=== PATIENT | female | born 1990 | race Caucasian/White ===

== ENCOUNTER 2021-06-18 16:30 | Inpatient (IN) | payer BC ==
[2021-06-18] MEDS ORDERED: Sodium Chloride 0.9% 10 ML Syringe FLUSH PRN (16:58)
[2021-06-18] MEDS: Lactated Ringers 1,000 ML IV ONE ×2 (17:07→17:59)
[2021-06-18] MEDS ORDERED: Ondansetron 4 MG/2 ML SDV IVPUSH PRN (17:51)
[2021-06-18] MEDS ORDERED: Aluminum Hydroxide/Magnesium Hydroxide/Simethicone Susp 30 ML Cup PO PRN (17:51)
[2021-06-18] MEDS ORDERED: Calcium Carbonate 500 MG Tab.Chew PO PRN (17:51)
[2021-06-18] MEDS ORDERED: Promethazine 25 MG Tab PO PRN (17:51)
[2021-06-18] MEDS ORDERED: Nalbuphine 10 MG/1 ML Vial IVPUSH PRN (17:51)
--- NOTE | 2021-06-18 17:54 | PCM.LDHP ---
L&D History of Present Illness - General Date of Service: 06/18/21 Admit Problem/Dx: Patient Status Order with Admit Dx/Problem 06/18/21 16:56 Patient Status [ADT] Routine 06/18/21 17:51 Patient Status [ADT] Routine Admission Diagnosis/Problem Admission Diagnosis/Problem Source of Information: Patient History Limitations: Reports: No Limitations - History of Present Illness Introduction:: Patient is a 30 y/o at 38 5/7 wks who presents to L&D from clinic for concerns of nausea, diarrhea, malaise. - Related Data Allergies/Adverse Reactions: Allergies Allergy/AdvReac Type Severity Reaction Status Date / Time No Known Allergies Allergy Verified 06/18/21 16:56 Past Medical History [employer]ATE History: Reports: , Spontaneous : 2 Para: 0 - Past Surgical History HEENT Surgical History: Reports: Oral Surgery Female Surgical History: Reports: D&C Social & Family History - Tobacco Use Tobacco Use Status *Q: Never Tobacco User - Alcohol Use Alcohol Use History: No - Recreational Drug Use Recreational Drug Use: No H&P Review of Systems - Review of Systems: Review Of Systems: See Below General: Reports: Malaise Pulmonary: Reports: No Symptoms Cardiovascular: Reports: No Symptoms Gastrointestinal: Reports: Abdominal Pain, Diarrhea, Nausea Genitourinary: Reports: Frequency Musculoskeletal: Reports: Back Pain Psychiatric: Reports: No Symptoms Neurological: Reports: No Symptoms L&D Exam - Exam Exam: See Below - Vital Signs Weight: 83.007 kg - OB Specific Contraction Intensity: Irritability Movement: Active Heart Tones: Present Heart Rate (FHR) Variability: Moderate (6-25 bpm) (some periods of minimal) Presentation: Vertex - Handy Score Handy Score Cervix Position: Posterior Handy Score Consistency: Soft Handy Score Effacement: >80% Handy Score Dilation: 1-2 cm Handy Score 's Station: -1 ,0 Handy Score Total: 8 - Exam General: Alert, Oriented, Cooperative Lungs: Clear to Auscultation, Normal Respiratory Effort Cardiovascular: Regular Rate, Regular Rhythm GI/Abdominal Exam: Soft, Non-Tender Genitourinary: Normal external exam Extremities: Normal Inspection Skin: Warm, Dry, Intact - Patient Data Lab Results Last 24 hrs: Laboratory Results - last 24 hr 06/18/21 Range/Units 17:07 WBC 13.95 H (3.98-10.04) K/mm3 RBC 4.67 (3.98-5.22) M/mm3 Hgb 13.5 (11.2-15.7) gm/dl Hct 40.1 (34.1-44.9) % MCV 85.9 (79.4-94.8) fl MCH 28.9 (25.6-32.2) pg MCHC 33.7 (32.2-35.5) g/dl RDW Std Deviation 42.0 (36.4-46.3) fL Plt Count 265 (182-369) K/mm3 MPV 9.6 (9.4-12.3) fl Result Diagrams: 06/18/21 17:07 06/18/21 17:07 - Problem List (1) 38 weeks gestation of SNOMED Code(s): 26105607 ICD Code: Z3A.38 - 38 WEEKS GESTATION OF Status: Acute Current Visit: Yes (2) Diarrhea SNOMED Code(s): 37726817 ICD Code: R19.7 - DIARRHEA, UNSPECIFIED Status: Acute Current Visit: Yes Qualifiers: Diarrhea type: unspecified type Qualified Code(s): R19.7 - Diarrhea, unspecified (3) Malaise SNOMED Code(s): 425298487 ICD Code: R53.81 - OTHER MALAISE Status: Acute Current Visit: Yes (4) Oligohydramnios SNOMED Code(s): 62351402 ICD Code: O41.00X0 - OLIGOHYDRAMNIOS, UNSP TRIMESTER, NOT APPLICABLE OR UNSP Status: Acute Current Visit: Yes Qualifiers: Fetus number: single or unspecified fetus Trimester: third trimester Qualified Code(s): O41.03X0 - Oligohydramnios, third trimester, not applicable or unspecified Problem List Initiated/Reviewed/Updated: Yes Orders Last 24hrs: Active Orders 24 hr Category Date Time Status Patient Status [ADT] Routine ADT 06/18/21 16:56 Active Patient Status [ADT] Routine ADT 06/18/21 17:51 Ordered Communication Order [RC] ASDIRECTED Care 06/18/21 17:51 Ordered Communication Order [RC] ASDIRECTED Care 06/18/21 17:51 Ordered Communication Order [RC] ASDIRECTED Care 06/18/21 17:51 Ordered Heart Tones [RC] ASDIRECTED Care 06/18/21 17:52 Ordered Non Stress Test [RC] PER UNIT ROUTINE Care 06/18/21 16:56 Active Notify Provider [RC] ASDIRECTED Care 06/18/21 17:51 Ordered Notify Provider [RC] PRN Care 06/18/21 17:51 Ordered Peripheral IV Care [RC] . DIRECTED Care 06/18/21 16:59 Active Up ad Estrellita [RC] ASDIRECTED Care 06/18/21 17:52 Ordered Vaginal Exam [RC] ASDIRECTED Care 06/18/21 17:51 Ordered Vital Signs [RC] ASDIRECTED Care 06/18/21 17:51 Ordered Vital Signs [RC] PER UNIT ROUTINE Care 06/18/21 16:56 Active Regular Diet [DIET] Diet 06/18/21 Dinner Ordered BPP wo NST [US] Routine Exams 06/18/21 17:25 Ordered COMPREHENSIVE METABOLIC PN,CMP [CHEM] Routine Lab 06/18/21 17:07 Ordered CORONAVIRUS COVID-19 GUERITA [MOLEC] Stat Lab 06/18/21 17:54 Ordered RAPID PLASMA REAGIN,RPR [CHEM] Routine Lab 06/18/21 17:51 Ordered TYPE AND SCREEN [BBK] Routine Lab 06/18/21 17:07 Ordered UA W/O MICROSCOPIC [URIN] Routine Lab 06/18/21 17:07 Ordered Acetaminophen [TylenoL] Med 06/18/21 17:51 Ordered 650 mg PO Q4H PRN Alum Hydrox/Mag Hydrox/Simeth [Mag-Al Plus] Med 06/18/21 17:51 Ordered 30 ml PO Q8H PRN Calcium Carbonate [Tums] Med 06/18/21 17:51 Ordered 1,000 mg PO Q2H PRN Nalbuphine [Nubain] Med 06/18/21 17:51 Ordered 10 mg IVPUSH Q2H PRN Ondansetron [Zofran] Med 06/18/21 17:51 Ordered 4 mg IVPUSH Q4H PRN Oxytocin/Lactated Ringers [Pitocin in LR 10 Units/1,000 Med 06/18/21 18:00 Ordered ML] 10 unit in 1,000 ml IV .CONTINUOUS Oxytocin/Lactated Ringers [Pitocin in LR 10 Units/1,000 Med 06/18/21 18:00 Ordered ML] 10 unit in 1,000 ml IV TITRATE Promethazine [Phenergan] Med 06/18/21 17:51 Ordered 25 mg PO Q4H PRN Sodium Chloride 0.9% [Saline Flush] Med 06/18/21 16:58 Active 10 ml FLUSH ASDIRECTED PRN Electronic Heart Tones Ext w TOCO [WOMSER] Ot 06/18/21 17:51 Ordered Routine Electronic Heart Tones Internal [WOMSER] Per Unit Ot 06/18/21 17:51 Ordered Routine Peripheral IV Insertion Adult [OM.PC] Routine Oth 06/18/21 16:58 Ordered Resuscitation Status Routine Resus Stat 06/18/21 16:56 Ordered Medication Orders Sodium Chloride (Sodium Chloride 0.9% 10 Ml Syringe) 10 ml FLUSH ASDIRECTED PRN PRN Reason: Keep Vein Open Assessment/Plan Comment:: Patient presented from clinic for IVF, labs, and NST. On initial tracing few variables noted and some periods of minimal variability. Bedside US done with concerns for oligohydramnios. US ordered for FILIPPO, Growth, BPP. Prior to tech a rriving 1L of fluid about complete with resolution of variables, improvement in variability, and also presence of accelerations. US had findings of oligohydramnios. BPP off for fluid and breathing. However, as NST then reactive right prior total score of 6/10. Reviewed with patient given oligohy dramnios recommend proceeding with delivery. She agrees. GBS negative, no need for antibiotics. Cervical ripening balloon placed. Will add in Pitocin as able. Pain management per patient preference.
[2021-06-18] MEDS ORDERED: Lactated Ringers 1,000 ML IV ONE (17:56)
[2021-06-18] MEDS ORDERED: Lactated Ringers 1,000 ML ONE (17:59)
[2021-06-18] MEDS ORDERED: Oxytocin/Lactated Ringers 10 UNIT/1,000 ML BAG IV SCH ×2 (18:00)
--- NOTE | 2021-06-18 18:37 | US ---
Biophysical profile: Multiple real-time images were obtained transabdominally. Comparison: No prior obstetrical imaging is available. Dates: Working KAILASH: 06/27/21, gestational age 38 weeks 5 days Current ultrasound: KAILASH 07/01/21, gestational age 38 weeks 1 day presentation: Cephalic Placenta: Anterior Amniotic fluid: 3.31 cm, single pocket of 1.7 cm Measurements: BPD: 9.47 cm - 38 weeks 5 days Head circumference: 33.51 cm - 38 weeks 3 days Abdominal circumference: 33.01 cm - 37 weeks 0 days Femur length: 7.40 cm - 38 weeks 0 days Estimated weight: 3229 g (7 lbs. 2 oz.), estimated weight is at the 36th percentile for age Heart rate: 155 bpm Cervical length: 4.4 cm Biophysical profile: movement 2, breathing movement 0, tone 2, amniotic fluid volume 0 Impression: 1. Single intrauterine fetus currently cephalic in presentation. Dates as noted above. 2. Low amniotic fluid volume. 3. 4 out of 8 on biophysical profile. Diagnostic code #5
[2021-06-18] MEDS ORDERED: fentaNYL 100 MCG/2 ML SDV EPIDUR PRN (20:29)
[2021-06-18] MEDS ORDERED: ePHEDrine 50 MG/ML SDV IVPUSH PRN (20:29)
[2021-06-18] MEDS ORDERED: diphenhydrAMINE 50 MG/ML SDV IVPUSH PRN (20:29)
--- NOTE | 2021-06-18 21:03 | PCM.PREANE ---
Preanesthetic Assessment - Procedure Proposed Procedure: epidural - Anesthesia/Transfusion/Family Hx Anesthesia History: Prior Anesthesia Without Reaction Family History of Anesthesia Reaction: No Transfusion History: No Prior Transfusion(s) - Review of Systems General: Fatigue, Malaise Pulmonary: No Symptoms Cardiovascular: No Symptoms Gastrointestinal: Abdominal Pain (labor) Neurological: No Symptoms Other: Reports: None - Physical Assessment Vital Signs: Last Vital Signs Temp 36.6 C 06/18/21 16:45 Pulse 116 H 06/18/21 18:32 Resp BP 111/83 06/18/21 16:45 Pulse Ox Height: 1.73 m Weight: 83.007 kg ASA Class: 2 Mental Status: Alert & Oriented x3 Airway Class: Mallampati = 1 Dentition: Reports: Normal Dentition Thyro-Mental Finger Breadths: 3 Mouth Opening Finger Breadths: 3 ROM/Head Extension: Full Lungs: Clear to Auscultation, Normal Respiratory Effort Cardiovascular: Regular Rate, Regular Rhythm - Lab Values: Laboratory Last Values WBC 13.95 K/mm3 (3.98-10.04) H 06/18/21 17:07 RBC 4.67 M/mm3 (3.98-5.22) 06/18/21 17:07 Hgb 13.5 gm/dl (11.2-15.7) 06/18/21 17:07 Hct 40.1 % (34.1-44.9) 06/18/21 17:07 MCV 85.9 fl (79.4-94.8) 06/18/21 17:07 MCH 28.9 pg (25.6-32.2) 06/18/21 17:07 MCHC 33.7 g/dl (32.2-35.5) 06/18/21 17:07 RDW Std Deviation 42.0 fL (36.4-46.3) 06/18/21 17:07 Plt Count 265 K/mm3 (182-369) 06/18/21 17:07 MPV 9.6 fl (9.4-12.3) 06/18/21 17:07 Sodium 141 mEq/L (136-145) 06/18/21 17:07 Potassium 3.5 mEq/L (3.5-5.1) 06/18/21 17:07 Chloride 106 mEq/L (98-107) 06/18/21 17:07 Carbon Dioxide 21 mEq/L (21-32) 06/18/21 17:07 Anion Gap 17.5 (5-15) H 06/18/21 17:07 BUN 10 mg/dL (7-18) 06/18/21 17:07 Creatinine 0.8 mg/dL (0.55-1.02) 06/18/21 17:07 Est Cr Clr Drug Dosing 105.61 mL/min 06/18/21 17:07 Estimated GFR (MDRD) > 60 mL/min (>60) 06/18/21 17:07 BUN/Creatinine Ratio 12.5 (14-18) L 06/18/21 17:07 Glucose 76 mg/dL (70-99) 06/18/21 17:07 Calcium 9.2 mg/dL (8.5-10.1) 06/18/21 17:07 Total Bilirubin 0.5 mg/dL (0.2-1.0) 06/18/21 17:07 AST 14 U/L (15-37) L 06/18/21 17:07 ALT 16 U/L (14-59) 06/18/21 17:07 Alkaline Phosphatase 128 U/L (46-116) H 06/18/21 17:07 Total Protein 6.5 g/dl (6.4-8.2) 06/18/21 17:07 Albumin 3.0 g/dl (3.4-5.0) L 06/18/21 17:07 Globulin 3.5 gm/dL 06/18/21 17:07 Albumin/Globulin Ratio 0.9 (1-2) L 06/18/21 17:07 Urine Color Yellow (Yellow) 06/18/21 19:40 Urine Appearance Clear (Clear) 06/18/21 19:40 Urine pH 6.0 (5.0-8.0) 06/18/21 19:40 Ur Specific [place] 1.025 (1.005-1.030) 06/18/21 19:40 Urine Protein 1+ (Negative) H 06/18/21 19:40 Urine Glucose (UA) Negative (Negative) 06/18/21 19:40 Urine Ketones 4+ (Negative) H 06/18/21 19:40 Urine Occult Blood 1+ (Negative) H 06/18/21 19:40 Urine Nitrite Negative (Negative) 06/18/21 19:40 Urine Bilirubin Negative (Negative) 06/18/21 19:40 Urine Urobilinogen 0.2 (0.2-1.0) 06/18/21 19:40 Ur Leukocyte Esterase Negative (Negative) 06/18/21 19:40 RPR Non-reactive (NONREACTIVE) 06/18/21 16:15 SARS-CoV-2 RNA (GUERITA) Negative (NEGATIVE) 06/18/21 19:40 Blood Type A POSITIVE 06/18/21 17:07 Gel Antibody Screen Negative 06/18/21 17:07 - Allergies Allergies/Adverse Reactions: Allergies Allergy/AdvReac Type Severity Reaction Status Date / Time No Known Allergies Allergy Verified 06/18/21 16:56 - Anesthesia Plan Pre-Op Medication Ordered: None - Acknowledgements Anesthesia Type Planned: Epidural Pt an Appropriate Candidate for the Planned Anesthesia: Yes Alternatives and Risks of Anesthesia Discussed w Pt/Guardian: Yes Pt/Guardian Understands and Agrees with Anesthesia Plan: Yes PreAnesthesia Questionnaire Gastrointestinal History: Reports: GERD - CURRENT (IN HOUSE) MEDS Current Meds: Current Medications Acetaminophen (Acetaminophen 325 Mg Tab) 650 mg PO Q4H PRN PRN Reason: Fever greater than 100.4 Al Hydroxide/Mg Hydroxide (Aluminum Hydroxide/Magnesium Hydroxide/Simethicone Susp 30 Ml Cup) 30 ml PO Q8H PRN PRN Reason: Heartburn Calcium Carbonate/Glycine (Calcium Carbonate 500 Mg Tab.Chew) 1,000 mg PO Q2H PRN PRN Reason: Indigestion Diphenhydramine HCl (Diphenhydramine 50 Mg/Ml Sdv) 25 mg IVPUSH Q6H PRN PRN Reason: pruritis Ephedrine Sulfate (Ephedrine 50 Mg/Ml Sdv) 5 mg IVPUSH ASDIRECTED PRN PRN Reason: Hypotension Fentanyl (Fentanyl 100 Mcg/2 Ml Sdv) 100 mcg EPIDUR Q3H PRN PRN Reason: Pain Fentanyl/Bupivacaine HCl (Bupivacaine/Fentanyl/Ns 100 Ml Bag) 100 ml EPIDUR ASDIRECTED PRN PRN Reason: Pain Oxytocin/Lactated Ringer's (Pitocin In Lr 10 Units/1,000 Ml) 10 unit in 1,000 mls @ 12 mls/hr IV TITRATE CARIN; Protocol Oxytocin/Lactated Ringer's (Pitocin In Lr 10 Units/1,000 Ml) 10 unit in 1,000 mls @ 500 mls/hr IV .CONTINUOUS CARIN Nalbuphine HCl (Nalbuphine 10 Mg/1 Ml Vial) 10 mg IVPUSH Q2H PRN PRN Reason: Pain Ondansetron HCl (Ondansetron 4 Mg/2 Ml Sdv) 4 mg IVPUSH Q4H PRN PRN Reason: Nausea/Vomiting Promethazine HCl (Promethazine 25 Mg Tab) 25 mg PO Q4H PRN PRN Reason: Nausea/Vomiting Sodium Chloride (Sodium Chloride 0.9% 10 Ml Syringe) 10 ml FLUSH ASDIRECTED PRN PRN Reason: Keep Vein Open Discontinued Medications Lactated Ringer's (Ringers, Lactated) 1,000 mls @ 1,000 mls/hr IV .BOLUS ONE Stop: 06/18/21 17:57 Last Admin: 06/18/21 17:59 Dose: 1,000 mls/hr Documented by: Lactated Ringer's (Ringers, Lactated) 1,000 mls @ 1,000 mls/hr IV ASDIRECTED ONE Stop: 06/18/21 18:55 Lactated Ringer's (Ringers, Lactated) Confirm Administered Dose 1,000 mls @ as directed .ROUTE .STK-MED ONE Stop: 06/18/21 18:00
[2021-06-18] MEDS: Bupivacaine/fentaNYL/NS 100 ML Bag EPIDUR PRN (21:15)
[2021-06-18] MEDS: Lactated Ringers 1,000 ML IV SCH (21:30)
--- NOTE | 2021-06-18 23:49 | PCM.PNLD ---
Labor Progress Note - VS & Meds Vital Signs: Last Vital Signs Temp 36.6 C 06/18/21 16:45 Pulse 116 H 06/18/21 18:32 Resp BP 111/83 06/18/21 16:45 Pulse Ox Active Medications: Current Medications Acetaminophen (Acetaminophen 325 Mg Tab) 650 mg PO Q4H PRN PRN Reason: Fever greater than 100.4 Al Hydroxide/Mg Hydroxide (Aluminum Hydroxide/Magnesium Hydroxide/Simethicone Susp 30 Ml Cup) 30 ml PO Q8H PRN PRN Reason: Heartburn Calcium Carbonate/Glycine (Calcium Carbonate 500 Mg Tab.Chew) 1,000 mg PO Q2H PRN PRN Reason: Indigestion Diphenhydramine HCl (Diphenhydramine 50 Mg/Ml Sdv) 25 mg IVPUSH Q6H PRN PRN Reason: pruritis Ephedrine Sulfate (Ephedrine 50 Mg/Ml Sdv) 5 mg IVPUSH ASDIRECTED PRN PRN Reason: Hypotension Fentanyl (Fentanyl 100 Mcg/2 Ml Sdv) 100 mcg EPIDUR Q3H PRN PRN Reason: Pain Fentanyl/Bupivacaine HCl (Bupivacaine/Fentanyl/Ns 100 Ml Bag) 100 ml EPIDUR ASDIRECTED PRN PRN Reason: Pain Oxytocin/Lactated Ringer's (Pitocin In Lr 10 Units/1,000 Ml) 10 unit in 1,000 mls @ 12 mls/hr IV TITRATE CARIN; Protocol Oxytocin/Lactated Ringer's (Pitocin In Lr 10 Units/1,000 Ml) 10 unit in 1,000 mls @ 500 mls/hr IV .CONTINUOUS CARIN Nalbuphine HCl (Nalbuphine 10 Mg/1 Ml Vial) 10 mg IVPUSH Q2H PRN PRN Reason: Pain Ondansetron HCl (Ondansetron 4 Mg/2 Ml Sdv) 4 mg IVPUSH Q4H PRN PRN Reason: Nausea/Vomiting Promethazine HCl (Promethazine 25 Mg Tab) 25 mg PO Q4H PRN PRN Reason: Nausea/Vomiting Sodium Chloride (Sodium Chloride 0.9% 10 Ml Syringe) 10 ml FLUSH ASDIRECTED PRN PRN Reason: Keep Vein Open Discontinued Medications Lactated Ringer's (Ringers, Lactated) 1,000 mls @ 1,000 mls/hr IV .BOLUS ONE Stop: 06/18/21 17:57 Last Admin: 06/18/21 17:59 Dose: 1,000 mls/hr Documented by: Lactated Ringer's (Ringers, Lactated) 1,000 mls @ 1,000 mls/hr IV ASDIRECTED ONE Stop: 06/18/21 18:55 Lactated Ringer's (Ringers, Lactated) Confirm Administered Dose 1,000 mls @ as directed .ROUTE .STK-MED ONE Stop: 06/18/21 18:00 - Uterine Contractions Uterine Monitoring Mode: External [place] Contraction Intensity: Mild to Moderate - Monitoring Monitor Mode: External Ultrasound Heart Rate (FHR) Baseline: 145 Heart Rate (FHR) Variability: Moderate (6-25 bpm) (some periods of more minimal) Accelerations: Absent Decelerations: None Strip Review: Category I - Vaginal Exam Dilation (cm): 5 Effacement (Percent): 50 Station: 1 Sterile Vaginal Exam Performed By: Lay Rojas - Labor Progress (Free Text) Labor Progress: Doing well. After cervical ripening balloon placed became very uncomfortable. Received an epidural and now doing well. Balloon able to be removed with gentle traction. Attempt made at AROM, but no fluid returned. Uncertain if successful or findings due to oligohydramnios. Pitocin at 2. Continue per protocol
[2021-06-18] MEDS: Acetaminophen 325 MG Tab PO PRN (23:59)
[2021-06-19] MEDS: Lactated Ringers 1,000 ML IV SCH ×3 (00:02→09:00)
[2021-06-19] MEDS: Bupivacaine/fentaNYL/NS 100 ML Bag EPIDUR PRN ×2 (03:40→10:35)
--- NOTE | 2021-06-19 05:12 | PCM.PNLD ---
Labor Progress Note - VS & Meds Vital Signs: Last Vital Signs Temp 36.6 C 06/18/21 16:45 Pulse 116 H 06/18/21 18:32 Resp BP 111/83 06/18/21 16:45 Pulse Ox Active Medications: Current Medications Acetaminophen (Acetaminophen 325 Mg Tab) 650 mg PO Q4H PRN PRN Reason: Fever greater than 100.4 Last Admin: 06/18/21 23:59 Dose: 650 mg Documented by: Al Hydroxide/Mg Hydroxide (Aluminum Hydroxide/Magnesium Hydroxide/Simethicone Susp 30 Ml Cup) 30 ml PO Q8H PRN PRN Reason: Heartburn Calcium Carbonate/Glycine (Calcium Carbonate 500 Mg Tab.Chew) 1,000 mg PO Q2H PRN PRN Reason: Indigestion Diphenhydramine HCl (Diphenhydramine 50 Mg/Ml Sdv) 25 mg IVPUSH Q6H PRN PRN Reason: pruritis Ephedrine Sulfate (Ephedrine 50 Mg/Ml Sdv) 5 mg IVPUSH ASDIRECTED PRN PRN Reason: Hypotension Fentanyl (Fentanyl 100 Mcg/2 Ml Sdv) 100 mcg EPIDUR Q3H PRN PRN Reason: Pain Last Admin: 06/18/21 21:00 Dose: 100 mcg Documented by: Fentanyl/Bupivacaine HCl (Bupivacaine/Fentanyl/Ns 100 Ml Bag) 100 ml EPIDUR ASDIRECTED PRN PRN Reason: Pain Last Admin: 06/19/21 03:40 Dose: 100 ml Documented by: Oxytocin/Lactated Ringer's (Pitocin In Lr 10 Units/1,000 Ml) 10 unit in 1,000 mls @ 12 mls/hr IV TITRATE CARIN; Protocol Last Titration: 06/19/21 01:10 Dose: 0 munits/min, 0 mls/hr Documented by: Oxytocin/Lactated Ringer's (Pitocin In Lr 10 Units/1,000 Ml) 10 unit in 1,000 mls @ 500 mls/hr IV .CONTINUOUS CARIN Lactated Ringer's (Ringers, Lactated) 1,000 mls @ 100 mls/hr IV ASDIRECTED CARIN Last Admin: 06/19/21 00:02 Dose: 250 mls/hr Documented by: Nalbuphine HCl (Nalbuphine 10 Mg/1 Ml Vial) 10 mg IVPUSH Q2H PRN PRN Reason: Pain Ondansetron HCl (Ondansetron 4 Mg/2 Ml Sdv) 4 mg IVPUSH Q4H PRN PRN Reason: Nausea/Vomiting Promethazine HCl (Promethazine 25 Mg Tab) 25 mg PO Q4H PRN PRN Reason: Nausea/Vomiting Sodium Chloride (Sodium Chloride 0.9% 10 Ml Syringe) 10 ml FLUSH ASDIRECTED PRN PRN Reason: Keep Vein Open Discontinued Medications Lactated Ringer's (Ringers, Lactated) 1,000 mls @ 1,000 mls/hr IV .BOLUS ONE Stop: 06/18/21 17:57 Last Admin: 06/18/21 17:59 Dose: 1,000 mls/hr Documented by: Lactated Ringer's (Ringers, Lactated) 1,000 mls @ 1,000 mls/hr IV ASDIRECTED ONE Stop: 06/18/21 18:55 Last Admin: 06/18/21 20:30 Dose: 1,000 mls/hr Documented by: Lactated Ringer's (Ringers, Lactated) Confirm Administered Dose 1,000 mls @ as directed .ROUTE .STK-MED ONE Stop: 06/18/21 18:00 Last Admin: 06/18/21 23:52 Dose: Not Given Documented by: - Uterine Contractions Uterine Monitoring Mode: External [place] Contraction Intensity: Moderate to Strong - Monitoring Monitor Mode: External Ultrasound Heart Rate (FHR) Baseline: 145 Heart Rate (FHR) Variability: Moderate (6-25 bpm) Accelerations: Absent Decelerations: None Strip Review: Category I - Vaginal Exam Dilation (cm): 6 Effacement (Percent): 90 Station: 1 Cervical Position: Midposition Sterile Vaginal Exam Performed By: Lay Rojas - Labor Progress (Free Text) Labor Progress: About an hour after starting pitocin had some decelerations noted. Pitocin at 4 at that time. Discontinued with resolution. Has been mandi fairly regularly since then. Tracing overall reassuring. Some small periods of mi nimal variability. Good scalp stimulation noted with last check. Making consistent change. Family updated on findings.
[2021-06-19] MEDS: Acetaminophen 325 MG Tab PO PRN ×2 (06:46→12:25)
--- NOTE | 2021-06-19 08:16 | PCM.PNLD ---
Labor Progress Note - VS & Meds Vital Signs: Last Vital Signs Temp 37.7 C 06/19/21 06:46 Pulse 116 H 06/18/21 18:32 Resp BP 111/83 06/18/21 16:45 Pulse Ox Active Medications: Current Medications Acetaminophen (Acetaminophen 325 Mg Tab) 650 mg PO Q4H PRN PRN Reason: Fever greater than 100.4 Last Admin: 06/19/21 06:46 Dose: 650 mg Documented by: Al Hydroxide/Mg Hydroxide (Aluminum Hydroxide/Magnesium Hydroxide/Simethicone Susp 30 Ml Cup) 30 ml PO Q8H PRN PRN Reason: Heartburn Calcium Carbonate/Glycine (Calcium Carbonate 500 Mg Tab.Chew) 1,000 mg PO Q2H PRN PRN Reason: Indigestion Diphenhydramine HCl (Diphenhydramine 50 Mg/Ml Sdv) 25 mg IVPUSH Q6H PRN PRN Reason: pruritis Ephedrine Sulfate (Ephedrine 50 Mg/Ml Sdv) 5 mg IVPUSH ASDIRECTED PRN PRN Reason: Hypotension Fentanyl (Fentanyl 100 Mcg/2 Ml Sdv) 100 mcg EPIDUR Q3H PRN PRN Reason: Pain Last Admin: 06/18/21 21:00 Dose: 100 mcg Documented by: Fentanyl/Bupivacaine HCl (Bupivacaine/Fentanyl/Ns 100 Ml Bag) 100 ml EPIDUR ASDIRECTED PRN PRN Reason: Pain Last Admin: 06/19/21 03:40 Dose: 100 ml Documented by: Oxytocin/Lactated Ringer's (Pitocin In Lr 10 Units/1,000 Ml) 10 unit in 1,000 mls @ 12 mls/hr IV TITRATE CARIN; Protocol Last Titration: 06/19/21 07:50 Dose: 4 munits/min, 24 mls/hr Documented by: Oxytocin/Lactated Ringer's (Pitocin In Lr 10 Units/1,000 Ml) 10 unit in 1,000 mls @ 500 mls/hr IV .CONTINUOUS CARIN Lactated Ringer's (Ringers, Lactated) 1,000 mls @ 100 mls/hr IV ASDIRECTED CARIN Last Admin: 06/19/21 04:09 Dose: 100 mls/hr Documented by: Nalbuphine HCl (Nalbuphine 10 Mg/1 Ml Vial) 10 mg IVPUSH Q2H PRN PRN Reason: Pain Ondansetron HCl (Ondansetron 4 Mg/2 Ml Sdv) 4 mg IVPUSH Q4H PRN PRN Reason: Nausea/Vomiting Promethazine HCl (Promethazine 25 Mg Tab) 25 mg PO Q4H PRN PRN Reason: Nausea/Vomiting Sodium Chloride (Sodium Chloride 0.9% 10 Ml Syringe) 10 ml FLUSH ASDIRECTED PRN PRN Reason: Keep Vein Open Discontinued Medications Lactated Ringer's (Ringers, Lactated) 1,000 mls @ 1,000 mls/hr IV .BOLUS ONE Stop: 06/18/21 17:57 Last Admin: 06/18/21 17:59 Dose: 1,000 mls/hr Documented by: Lactated Ringer's (Ringers, Lactated) 1,000 mls @ 1,000 mls/hr IV ASDIRECTED ONE Stop: 06/18/21 18:55 Last Admin: 06/18/21 20:30 Dose: 1,000 mls/hr Documented by: Lactated Ringer's (Ringers, Lactated) Confirm Administered Dose 1,000 mls @ as directed .ROUTE .STK-MED ONE Stop: 06/18/21 18:00 Last Admin: 06/18/21 23:52 Dose: Not Given Documented by: - Uterine Contractions Uterine Monitoring Mode: External [place] Contraction Intensity: Moderate to Strong - Monitoring Monitor Mode: External Ultrasound Heart Rate (FHR) Baseline: 155 Heart Rate (FHR) Variability: Moderate (6-25 bpm) Accelerations: Present, 10x10 (=/<32 wks) Decelerations: Variable Strip Review: Category II - Vaginal Exam Dilation (cm): 7 Effacement (Percent): 90 Station: 2 Cervical Position: Anterior Sterile Vaginal Exam Performed By: Lay Rojas - Labor Progress (Free Text) Labor Progress: Patient with no change at 0700 and so pitocin restarted. Currently at 4. Has been on for about 45 minutes. Patient now 7. Some variable decelerations. Turned to hands/knees with resolution. Patient and family updated on findings. Will continue to work cautiously towards vaginal delivery
--- NOTE | 2021-06-19 08:46 | PCM.SN.2 ---
- Free Text/Narrative Note: 0844 Patient with some temperatures of 100.0 and upper 99's overnight. Has never had a temperature of 100.3, but also has been receiving Tylenol. When presented had GI illness symptoms from previous days and so likely these findings from that, but now with a more sustained tachycardia in the 170's. Will start Amp and Gent to cover for a chorio like picture given somewhat challenging to completely rule out as now ruptured for about 9 hours. Lay Rojas MD
[2021-06-19] MEDS: Ampicillin 2 GM in Sodium Chloride 0.9% 100 ML IV SCH ×2 (08:53→14:02)
[2021-06-19] MEDS ORDERED: Bupivacaine 0.25% 10 ML SDV ONE (09:00)
[2021-06-19] MEDS ORDERED: Methylergonovine 0.2 MG/1 ML Amp ONE (14:20)
[2021-06-19] MEDS ORDERED: Methylergonovine 0.2 MG/1 ML Amp IM STA (14:29)
--- NOTE | 2021-06-19 14:31 | PCM.DEL ---
L & D Note - General Info Date of Service: 06/19/21 - Delivery Note Labor: Augmented by ARM, Induced by Oxytocin Cervical Ripening Method: Balloon Device Delivery Outcome: Livebirth Delivery Method: Spontaneous Vaginal Delivery-Single Delivery Mode: Vacuum Extraction Presentation: Right Occiput Anterior (RICARDO) Nuchal Cord: Present, Reduced Anesthesia Type: Epidural Amniotic Fluid Description: Clear Episiotomy Type: None Laceration: 2nd Degree, Perineal Suture type: Vicryl Suture size: 2-0 Placenta: Intact, Spontaneous Cord: 3 Vessels Estimated Blood Loss: 350 Resuscitation Needed: Yes [place]: Bulb Syringe, Stimulated, Warmed, [place] Used, Warmer Used Delivery Comments (Free Text/Narrative):: The patient was pushing in the dorsal lithotomy position. Sterile vaginal exam complete/complete/+3 station. head in RICARDO presentation. Maternal pushing effort was good and the pelvis was felt to be adequate for an instrument assisted delivery. Given maternal exhaustion (had been pushing 3.5 hours), the decision was made to proceed with vacuum assisted vaginal delivery. The mushroom cup was placed without difficulty with care to avoid the vaginal side hobson at 1408. Subsequent vacuum assisted vaginal delivery with pushing over 3 contractions. Total pop offs : 0. Suction was removed following delivery of the head. Nuchal cord present and reduced. The remainder of the infant delivered without difficulty at 1412. placed on maternal abdomen. Cord eventually clamped and cut. Cord blood obtained. Placenta allowed time to separate and expelled intact. Poor uterine tone noted and so given 0.2 mg of IM methergine. Inspection of perineum showed a 2nd degree laceration which was repaired with a 2-0 Vicryl in the typical fashion. - General Info Date of Service: 06/19/21 - Patient Data Vitals - Most Recent: Last Vital Signs Temp 38.2 C H 06/19/21 12:25 Pulse 116 H 06/18/21 18:32 Resp BP 111/83 06/18/21 16:45 Pulse Ox Weight - Most Recent: 83.007 kg I&O - Last 24 Hours: Intake & Output 06/18/21 06/19/21 06/19/21 22:59 06:59 14:59 Intake Total 1000 4000 1780 Output Total 1025 Balance 1000 4000 755 - Exam Urinary Catheter Total Time: 0Days 0Hours - Problem List & Annotations (1) 38 weeks gestation of SNOMED Code(s): 74845451 Code(s): Z3A.38 - 38 WEEKS GESTATION OF Status: Acute Current Visit: Yes (2) Diarrhea SNOMED Code(s): 18808500 Code(s): R19.7 - DIARRHEA, UNSPECIFIED Status: Acute Current Visit: Yes Qualifiers: Diarrhea type: unspecified type Qualified Code(s): R19.7 - Diarrhea, unspecified (3) Malaise SNOMED Code(s): 389334201 Code(s): R53.81 - OTHER MALAISE Status: Acute Current Visit: Yes (4) Oligohydramnios SNOMED Code(s): 12877157 Code(s): O41.00X0 - OLIGOHYDRAMNIOS, UNSP TRIMESTER, NOT APPLICABLE OR UNSP Status: Acute Current Visit: Yes Qualifiers: Fetus number: single or unspecified fetus Trimester: third trimester Qualified Code(s): O41.03X0 - Oligohydramnios, third trimester, not applicable or unspecified (5) Fever SNOMED Code(s): 319722652 Code(s): R50.9 - FEVER, UNSPECIFIED Status: Acute Current Visit: Yes (6) Chorioamnionitis SNOMED Code(s): 26510271 Code(s): O41.1290 - CHORIOAMNIONITIS, UNSP TRIMESTER, NOT APPLICABLE OR UNSP Status: Acute Current Visit: Yes Qualifiers: Fetus number: single or unspecified fetus Trimester: third trimester Qualified Code(s): O41.1230 - Chorioamnionitis, third trimester, not applicable or unspecified (7) Vacuum-assisted vaginal delivery SNOMED Code(s): 64174143568827489 Code(s): Z37.9 - OUTCOME OF DELIVERY, UNSPECIFIED Status: Acute Current Visit: Yes - Problem List Review Problem List Initiated/Reviewed/Updated: Yes - My Orders Last 24 Hours: My Active Orders 06/18/21 16:56 Patient Status [ADT] Routine Resuscitation Status Routine 06/18/21 16:58 Sodium Chloride 0.9% [Saline Flush] 10 ml FLUSH ASDIRECTED PRN Peripheral IV Insertion Adult [OM.PC] Routine 06/18/21 16:59 Peripheral IV Care [RC] . DIRECTED 06/18/21 Dinner Regular Diet [DIET] 06/18/21 17:51 Patient Status [ADT] Routine Communication Order [RC] ASDIRECTED Communication Order [RC] ASDIRECTED Communication Order [RC] ASDIRECTED Notify Provider [RC] ASDIRECTED Notify Provider [RC] PRN Acetaminophen [TylenoL] 650 mg PO Q4H PRN Alum Hydrox/Mag Hydrox/Simeth [Mag-Al Plus] 30 ml PO Q8H PRN Calcium Carbonate [Tums] 1,000 mg PO Q2H PRN Nalbuphine [Nubain] 10 mg IVPUSH Q2H PRN Ondansetron [Zofran] 4 mg IVPUSH Q4H PRN Promethazine [Phenergan] 25 mg PO Q4H PRN Electronic Heart Tones Ext w TOCO [WOMSER] Routine Electronic Heart Tones Internal [WOMSER] Per Unit Routine 06/18/21 17:52 Up ad [place]rellita [RC] ASDIRECTED 06/18/21 18:00 Oxytocin/Lactated Ringers [Pitocin in LR 10 Units/1,000 ML] 10 unit in 1,000 ml IV .CONTINUOUS Oxytocin/Lactated Ringers [Pitocin in LR 10 Units/1,000 ML] 10 unit in 1,000 ml IV TITRATE 06/18/21 21:30 Lactated Ringers [Ringers, Lactated] 1,000 ml IV ASDIRECTED 06/19/21 08:45 Ampicillin 2 gm Sodium Chloride 0.9% [Normal Saline AdvBag] 100 ml IV Q6H 06/19/21 14:29 Patient Status Manage Transfer [TRANSFER] Routine - Assessment Assessment:: PPD#0 - Plan Plan:: * Patient with fever in labor. Difficult to state whether chorioamnionitis or infectious process that initially caused her to seek evaluation. S/p Amp and Gent in labor. Will discontinue for now and monitor. * Routine cares * Breast feeding * Discharge home in 2 days
[2021-06-19] MEDS ORDERED: Benzocaine/Menthol 20%-0.5% Spray 78 GM Cannister TOP PRN (14:53)
[2021-06-19] MEDS ORDERED: Docusate Sodium 100 MG Cap PO PRN (14:53)
[2021-06-19] MEDS ORDERED: Acetaminophen 325 MG Tab PO PRN (14:53)
[2021-06-19] MEDS ORDERED: Witch Hazel Medicated Pads 40/Jar TOP PRN (14:53)
[2021-06-19] MEDS: Ibuprofen 600 MG Tab PO PRN (16:08)
--- NOTE | 2021-06-19 16:59 | PCM48HPAN ---
Post Anesthesia Note - EVALUATION WITHIN 48HRS OF ANESTHETIC Vital Signs in Normal Range: Yes Patient Participated in Evaluation: Yes Respiratory Function Stable: Yes Airway Patent: Yes Cardiovascular Function Stable: Yes Hydration Status Stable: Yes Pain Control Satisfactory: Yes Nausea and Vomiting Control Satisfactory: Yes Mental Status Recovered: Yes Vital Signs: Last Vital Signs Temp 38.2 C H 06/19/21 12:25 Pulse 116 H 06/18/21 18:32 Resp BP 111/83 06/18/21 16:45 Pulse Ox
[2021-06-20] MEDS: Ibuprofen 600 MG Tab PO PRN ×3 (00:09→15:55)
--- NOTE | 2021-06-20 05:49 | PCM.PNPP ---
- General Info Date of Service: 06/20/21 Functional Status: Reports: Pain Controlled, Tolerating Diet, Ambulating, Urinating - Review of Systems General: Reports: No Symptoms Pulmonary: Reports: No Symptoms Cardiovascular: Reports: No Symptoms Gastrointestinal: Reports: No Symptoms Genitourinary: Reports: No Symptoms Musculoskeletal: Reports: No Symptoms - General Info Date of Service: 06/20/21 - Patient Data Vital Signs - Most Recent: Last Vital Signs Temp 36.2 C 06/20/21 03:06 Pulse 74 06/20/21 03:06 Resp 16 06/20/21 03:06 BP 94/59 L 06/20/21 03:06 Pulse Ox 99 06/20/21 03:06 Weight - Most Recent: 83.007 kg I&O - Last 24 Hours: Intake & Output 06/19/21 06/19/21 06/20/21 14:59 22:59 06:59 Intake Total 1780 3100 Output Total 1275 291 Balance 505 2809 Med Orders - Current: Current Medications Acetaminophen (Acetaminophen 325 Mg Tab) 650 mg PO Q4H PRN PRN Reason: mild pain or fever Last Admin: 06/19/21 20:39 Dose: 650 mg Documented by: Benzocaine/Menthol (Benzocaine/Menthol 20%-0.5% [place] 78 Gm Cannister) 0 gm TOP ASDIRECTED PRN PRN Reason: Perineal Comfort Measure Last Admin: 06/19/21 16:09 Dose: 1 can Documented by: Docusate Sodium (Docusate Sodium 100 Mg Cap) 100 mg PO BID PRN PRN Reason: Constipation Ibuprofen (Ibuprofen 600 Mg Tab) 600 mg PO Q6H PRN PRN Reason: Mild pain or fever Last Admin: 06/20/21 00:09 Dose: 600 mg Documented by: Florencio Gorman (Florencio Gorman Medicated Pads 40/Jar) 1 pad TOP ASDIRECTED PRN PRN Reason: Perineal Comfort Measure Last Admin: 06/19/21 16:08 Dose: 1 tub Documented by: Discontinued Medications Acetaminophen (Acetaminophen 325 Mg Tab) 650 mg PO Q4H PRN PRN Reason: Fever greater than 100.4 Last Admin: 06/19/21 12:25 Dose: 650 mg Documented by: Al Hydroxide/Mg Hydroxide (Aluminum Hydroxide/Magnesium Hydroxide/Simethicone Susp 30 Ml Cup) 30 ml PO Q8H PRN PRN Reason: Heartburn Calcium Carbonate/Glycine (Calcium Carbonate 500 Mg Tab.Chew) 1,000 mg PO Q2H PRN PRN Reason: Indigestion Diphenhydramine HCl (Diphenhydramine 50 Mg/Ml Sdv) 25 mg IVPUSH Q6H PRN PRN Reason: pruritis Ephedrine Sulfate (Ephedrine 50 Mg/Ml Sdv) 5 mg IVPUSH ASDIRECTED PRN PRN Reason: Hypotension Fentanyl (Fentanyl 100 Mcg/2 Ml Sdv) 100 mcg EPIDUR Q3H PRN PRN Reason: Pain Last Admin: 06/18/21 21:00 Dose: 100 mcg Documented by: Fentanyl/Bupivacaine HCl (Bupivacaine/Fentanyl/Ns 100 Ml Bag) 100 ml EPIDUR ASDIRECTED PRN PRN Reason: Pain Last Admin: 06/19/21 10:35 Dose: 100 ml Documented by: Lactated Ringer's (Ringers, Lactated) 1,000 mls @ 1,000 mls/hr IV .BOLUS ONE Stop: 06/18/21 17:57 Last Admin: 06/18/21 17:59 Dose: 1,000 mls/hr Documented by: Oxytocin/Lactated Ringer's (Pitocin In Lr 10 Units/1,000 Ml) 10 unit in 1,000 mls @ 12 mls/hr IV TITRATE CARIN; Protocol Last Titration: 06/19/21 14:12 Dose: 166.5 munits/min, 999 mls/hr Documented by: Oxytocin/Lactated Ringer's (Pitocin In Lr 10 Units/1,000 Ml) 10 unit in 1,000 mls @ 500 mls/hr IV .CONTINUOUS CARIN Last Admin: 06/19/21 14:45 Dose: 999 mls/hr Documented by: Lactated Ringer's (Ringers, Lactated) 1,000 mls @ 1,000 mls/hr IV ASDIRECTED ONE Stop: 06/18/21 18:55 Last Admin: 06/18/21 20:30 Dose: 1,000 mls/hr Documented by: Lactated Ringer's (Ringers, Lactated) Confirm Administered Dose 1,000 mls @ as directed .ROUTE .STK-MED ONE Stop: 06/18/21 18:00 Last Admin: 06/18/21 23:52 Dose: Not Given Documented by: Lactated Ringer's (Ringers, Lactated) 1,000 mls @ 100 mls/hr IV ASDIRECTED [facility] Last Admin: 06/19/21 09:00 Dose: 100 mls/hr Documented by: Ampicillin Sodium 2 gm/ Sodium (Chloride) 100 mls @ 200 mls/hr IV Q6H [facility] Last Admin: 06/19/21 14:02 Dose: 200 mls/hr Documented by: Gentamicin Sulfate 415 mg/ (Sodium Chloride) 110.375 mls @ 110.375 mls/hr IV ONETIME ONE Stop: 06/19/21 10:29 Last Admin: 06/19/21 09:35 Dose: 110.375 mls/hr Documented by: Methylergonovine Maleate (Methylergonovine 0.2 Mg/1 Ml Amp) Confirm Administered Dose 0.2 mg .ROUTE .STK-MED ONE Stop: 06/19/21 14:21 Last Admin: 06/19/21 17:51 Dose: Not Given Documented by: Methylergonovine Maleate (Methylergonovine 0.2 Mg/1 Ml Amp) 0.2 mg IM NOW STA Stop: 06/19/21 14:30 Last Admin: 06/19/21 14:22 Dose: 0.2 mg Documented by: Nalbuphine HCl (Nalbuphine 10 Mg/1 Ml Vial) 10 mg IVPUSH Q2H PRN PRN Reason: Pain Ondansetron HCl (Ondansetron 4 Mg/2 Ml Sdv) 4 mg IVPUSH Q4H PRN PRN Reason: Nausea/Vomiting Promethazine HCl (Promethazine 25 Mg Tab) 25 mg PO Q4H PRN PRN Reason: Nausea/Vomiting Sodium Chloride (Sodium Chloride 0.9% 10 Ml Syringe) 10 ml FLUSH ASDIRECTED PRN PRN Reason: Keep Vein Open - Interaction Disposition, : in Room with Family Infant Interaction: Holding Infant Feeding: Attempted ; Nursed Fair/Poor - Recovery Exam Fundal Tone: Firm Fundal Level: 1 Fingerbreadths Below Umbilicus Fundal Placement: Midline Lochia Amount: Small Lochia Color: Rubra/Red Perineum Description: Other (see below) Other Perinuem Description: 2nd degree with repair Bladder Status: Voiding Urinary Elimination: Voided - Exam General: Alert, Oriented, Cooperative GI/Abdominal Exam: Soft, Non-Tender - Problem List & Annotations (1) 38 weeks gestation of SNOMED Code(s): 17817143 Code(s): Z3A.38 - 38 WEEKS GESTATION OF Status: Acute Current Visit: Yes (2) Diarrhea SNOMED Code(s): 40836043 Code(s): R19.7 - DIARRHEA, UNSPECIFIED Status: Acute Current Visit: Yes Qualifiers: Diarrhea type: unspecified type Qualified Code(s): R19.7 - Diarrhea, unspecified (3) Malaise SNOMED Code(s): 288767381 Code(s): R53.81 - OTHER MALAISE Status: Acute Current Visit: Yes (4) Oligohydramnios SNOMED Code(s): 09728793 Code(s): O41.00X0 - OLIGOHYDRAMNIOS, UNSP TRIMESTER, NOT APPLICABLE OR UNSP Status: Acute Current Visit: Yes Qualifiers: Fetus number: single or unspecified fetus Trimester: third trimester Qualified Code(s): O41.03X0 - Oligohydramnios, third trimester, not applicable or unspecified (5) Fever SNOMED Code(s): 065057643 Code(s): R50.9 - FEVER, UNSPECIFIED Status: Acute Current Visit: Yes (6) Chorioamnionitis SNOMED Code(s): 20549169 Code(s): O41.1290 - CHORIOAMNIONITIS, UNSP TRIMESTER, NOT APPLICABLE OR UNSP Status: Acute Current Visit: Yes Qualifiers: Fetus number: single or unspecified fetus Trimester: third trimester Qualified Code(s): O41.1230 - Chorioamnionitis, third trimester, not applicable or unspecified (7) Vacuum-assisted vaginal delivery SNOMED Code(s): 79934412712528626 Code(s): Z37.9 - OUTCOME OF DELIVERY, UNSPECIFIED Status: Acute Current Visit: Yes - Problem List Review Problem List Initiated/Reviewed/Updated: Yes - My Orders Last 24 Hours: My Active Orders 06/19/21 14:53 Acetaminophen [TylenoL] 650 mg PO Q4H PRN Benzocaine/Menthol [Dermoplast Pain Relief 20%-0.5% [place]] See Dose Instructions TOP ASDIRECTED PRN Docusate Sodium [Colace] 100 mg PO BID PRN Ibuprofen [Motrin] 600 mg PO Q6H PRN witch Michelle [Tucks] 1 pad TOP ASDIRECTED PRN Heat Therapy [OM.PC] PRN 06/19/21 14:53 Activity as Tolerated [RC] PER UNIT ROUTINE Vital Signs [RC] 03,09,15,21 Assess Lochia [WOMSER] Per Unit Routine Assess Uterine Involution [WOMSER] Per Unit Routine Breast Pump [WOMSER] Per Unit Routine Ice Therapy [OM.PC] Per Unit Routine Perineal Care [OM.PC] Per Unit Routine Peripheral IV Discontinue [OM.PC] Routine Sitz Bath [OM.PC] Per Unit Routine 06/19/21 Dinner Regular Diet [DIET] 06/20/21 14:53 Heat Therapy [OM.PC] PRN - Assessment Assessment:: PPD#1 - Plan Plan:: * Routine cares * Breast feeding * Discharge home tomorrow
[2021-06-21] MEDS: Ibuprofen 600 MG Tab PO PRN (06:46)
--- NOTE | 2021-06-21 07:07 | PCM.DCSUM1 ---
Discharge Summary - Discharge Data Discharge Date: 06/21/21 Discharge Disposition: Home, Self-Care 01 Condition: Good - Referral to Home Health Primary Care Physician: Lay Rojas MD - Discharge Diagnosis/Problem(s) (1) 38 weeks gestation of SNOMED Code(s): 94586969 ICD Code: Z3A.38 - 38 WEEKS GESTATION OF Status: Acute Current Visit: Yes (2) Diarrhea SNOMED Code(s): 85123514 ICD Code: R19.7 - DIARRHEA, UNSPECIFIED Status: Acute Current Visit: Yes Qualifiers: Diarrhea type: unspecified type Qualified Code(s): R19.7 - Diarrhea, unspecified (3) Malaise SNOMED Code(s): 381723164 ICD Code: R53.81 - OTHER MALAISE Status: Acute Current Visit: Yes (4) Oligohydramnios SNOMED Code(s): 91872437 ICD Code: O41.00X0 - OLIGOHYDRAMNIOS, UNSP TRIMESTER, NOT APPLICABLE OR UNSP Status: Acute Current Visit: Yes Qualifiers: Fetus number: single or unspecified fetus Trimester: third trimester Qualified Code(s): O41.03X0 - Oligohydramnios, third trimester, not applicable or unspecified (5) Fever SNOMED Code(s): 132750912 ICD Code: R50.9 - FEVER, UNSPECIFIED Status: Acute Current Visit: Yes (6) Chorioamnionitis SNOMED Code(s): 27384841 ICD Code: O41.1290 - CHORIOAMNIONITIS, UNSP TRIMESTER, NOT APPLICABLE OR UNSP Status: Acute Current Visit: Yes Qualifiers: Fetus number: single or unspecified fetus Trimester: third trimester Qualified Code(s): O41.1230 - Chorioamnionitis, third trimester, not applicable or unspecified (7) Vacuum-assisted vaginal delivery SNOMED Code(s): 07550313267181329 ICD Code: Z37.9 - OUTCOME OF DELIVERY, UNSPECIFIED Status: Acute Current Visit: Yes - Patient Summary/Data Complications: None Consults: None Recommended Follow-up Testing/Procedures: Follow up in 3 weeks for check Hospital Course: 30 y/o at 38 5/7 wks who presented initially to clinic for diarrhea, nausea, etc. Was sent to L&D for IVF and monitoring. On L&D found to have variables with contractions. Bedside scan with concerns for oligohydramnios which was confirmed on formal ultrasound. Induction begun with cook catheter balloon and then AROM/pitocin. Progressed slowly but well to complete dilation. During this course had fevers documented. Uncertain whether from true chorioamnionitis or presenting GI illness. Was treated with Amp/Gent to cover for chorioamnionitis. After about 3.5 hours of pushing became exhausted and consented to VAVD. This was successful. See delivery note. did well and was discharged home on PPD#2 - Patient Instructions Diet: Regular Diet as Tolerated Activity: As Tolerated Activity, Other: Pelvic rest for 6 weeks Driving: May Drive Today Showering/Bathing: May Shower Showering/Bathing, Other: May Bathe Notify Provider of: Fever, Increased Pain, Swelling and Redness, Drainage, Nausea and/or Vomiting - Discharge Plan *PRESCRIPTION DRUG MONITORING PROGRAM REVIEWED*: No *COPY OF PRESCRIPTION DRUG MONITORING REPORT IN PATIENT LINK: No Home Medications: Home Meds Acetaminophen [Tylenol] 650 mg PO Q4H PRN tablet 06/21/21 [Rx] Docusate Sodium [Colace] 100 mg PO BID PRN cap 06/21/21 [Rx] Ibuprofen [Motrin] 600 mg PO Q6H PRN tablet 06/21/21 [Rx] Referrals: Lay Rojas MD [Primary Care Provider] - (3 weeks for check ) - Discharge Summary/Plan Comment DC Time >30 min.: No Total # of Minutes for Discharge Time: 15 - Patient Data Vitals - Most Recent: Last Vital Signs Temp 36.3 C 06/21/21 02:37 Pulse 80 06/21/21 02:37 Resp 14 06/21/21 02:37 BP 111/63 06/21/21 02:37 Pulse Ox 98 06/21/21 02:37 Weight - Most Recent: 83.007 kg I&O - Last 24 hours: Intake & Output 06/20/21 06/21/21 06/21/21 22:59 06:59 14:59 Intake Total 600 Balance 600 Med Orders - Current: Current Medications Acetaminophen (Acetaminophen 325 Mg Tab) 650 mg PO Q4H PRN PRN Reason: mild pain or fever Last Admin: 06/19/21 20:39 Dose: 650 mg Documented by: Benzocaine/Menthol (Benzocaine/Menthol 20%-0.5% [place] 78 Gm Cannister) 0 gm TOP ASDIRECTED PRN PRN Reason: Perineal Comfort Measure Last Admin: 06/19/21 16:09 Dose: 1 can Documented by: Docusate Sodium (Docusate Sodium 100 Mg Cap) 100 mg PO BID PRN PRN Reason: Constipation Last Admin: 06/20/21 15:55 Dose: 100 mg Documented by: Ibuprofen (Ibuprofen 600 Mg Tab) 600 mg PO Q6H PRN PRN Reason: Mild pain or fever Last Admin: 06/21/21 06:46 Dose: 600 mg Documented by: Florencio Gorman (Florencio Gorman Medicated Pads 40/Jar) 1 pad TOP ASDIRECTED PRN PRN Reason: Perineal Comfort Measure Last Admin: 06/19/21 16:08 Dose: 1 tub Documented by: Discontinued Medications Acetaminophen (Acetaminophen 325 Mg Tab) 650 mg PO Q4H PRN PRN Reason: Fever greater than 100.4 Last Admin: 06/19/21 12:25 Dose: 650 mg Documented by: Al Hydroxide/Mg Hydroxide (Aluminum Hydroxide/Magnesium Hydroxide/Simethicone Susp 30 Ml Cup) 30 ml PO Q8H PRN PRN Reason: Heartburn Bupivacaine HCl (Bupivacaine 0.25% 10 Ml Sdv) 10 ml .ROUTE .[facility]-MED ONE Stop: 06/19/21 09:01 Calcium Carbonate/Glycine (Calcium Carbonate 500 Mg Tab.Chew) 1,000 mg PO Q2H PRN PRN Reason: Indigestion Diphenhydramine HCl (Diphenhydramine 50 Mg/Ml Sdv) 25 mg IVPUSH Q6H PRN PRN Reason: pruritis Ephedrine Sulfate (Ephedrine 50 Mg/Ml Sdv) 5 mg IVPUSH ASDIRECTED PRN PRN Reason: Hypotension Fentanyl (Fentanyl 100 Mcg/2 Ml Sdv) 100 mcg EPIDUR Q3H PRN PRN Reason: Pain Last Admin: 06/18/21 21:00 Dose: 100 mcg Documented by: Fentanyl/Bupivacaine HCl (Bupivacaine/Fentanyl/Ns 100 Ml Bag) 100 ml EPIDUR ASDIRECTED PRN PRN Reason: Pain Last Admin: 06/19/21 10:35 Dose: 100 ml Documented by: Lactated Ringer's (Ringers, Lactated) 1,000 mls @ 1,000 mls/hr IV .BOLUS ONE Stop: 06/18/21 17:57 Last Admin: 06/18/21 17:59 Dose: 1,000 mls/hr Documented by: Oxytocin/Lactated Ringer's (Pitocin In Lr 10 Units/1,000 Ml) 10 unit in 1,000 mls @ 12 mls/hr IV TITRATE CARIN; Protocol Last Titration: 06/19/21 14:12 Dose: 166.5 munits/min, 999 mls/hr Documented by: Oxytocin/Lactated Ringer's (Pitocin In Lr 10 Units/1,000 Ml) 10 unit in 1,000 mls @ 500 mls/hr IV .CONTINUOUS CARIN Last Admin: 06/19/21 14:45 Dose: 999 mls/hr Documented by: Lactated Ringer's (Ringers, Lactated) 1,000 mls @ 1,000 mls/hr IV ASDIRECTED ONE Stop: 06/18/21 18:55 Last Admin: 06/18/21 20:30 Dose: 1,000 mls/hr Documented by: Lactated Ringer's (Ringers, Lactated) Confirm Administered Dose 1,000 mls @ as directed .ROUTE .STK-MED ONE Stop: 06/18/21 18:00 Last Admin: 06/18/21 23:52 Dose: Not Given Documented by: Lactated Ringer's (Ringers, Lactated) 1,000 mls @ 100 mls/hr IV ASDIRECTED CARIN Last Admin: 06/19/21 09:00 Dose: 100 mls/hr Documented by: Ampicillin Sodium 2 gm/ Sodium (Chloride) 100 mls @ 200 mls/hr IV Q6H CARIN Last Admin: 06/19/21 14:02 Dose: 200 mls/hr Documented by: Gentamicin Sulfate 415 mg/ (Sodium Chloride) 110.375 mls @ 110.375 mls/hr IV ONETIME ONE Stop: 06/19/21 10:29 Last Admin: 06/19/21 09:35 Dose: 110.375 mls/hr Documented by: Methylergonovine Maleate (Methylergonovine 0.2 Mg/1 Ml Amp) Confirm Administered Dose 0.2 mg .ROUTE .STK-MED ONE Stop: 06/19/21 14:21 Last Admin: 06/19/21 17:51 Dose: Not Given Documented by: Methylergonovine Maleate (Methylergonovine 0.2 Mg/1 Ml Amp) 0.2 mg IM NOW STA Stop: 06/19/21 14:30 Last Admin: 06/19/21 14:22 Dose: 0.2 mg Documented by: Nalbuphine HCl (Nalbuphine 10 Mg/1 Ml Vial) 10 mg IVPUSH Q2H PRN PRN Reason: Pain Ondansetron HCl (Ondansetron 4 Mg/2 Ml Sdv) 4 mg IVPUSH Q4H PRN PRN Reason: Nausea/Vomiting Promethazine HCl (Promethazine 25 Mg Tab) 25 mg PO Q4H PRN PRN Reason: Nausea/Vomiting Sodium Chloride (Sodium Chloride 0.9% 10 Ml Syringe) 10 ml FLUSH ASDIRECTED PRN PRN Reason: Keep Vein Open
== END 2021-06-21 10:00 | disposition home or self-care (01) | DRG 560 ==
LOC: JD.OBCHECK 16:30 → JD.OB 17:27 → JD.OBCHECK 18:20 → OBSVTOIN 06-19 14:12 → JD.OB 06-19 14:13
PROVIDERS: ADMIT Obstetrics & Gynecology; ATTEND Obstetrics & Gynecology
PROC: 10D07Z6 Extraction of Products of Conception, Vacuum, Via Natural or Artificial Opening (ICD-10-PCS; principal; 2021-06-19)
PROC: 10907ZC Drainage of Amniotic Fluid, Therapeutic from Products of Conception, Via Natural or Artificial Opening (ICD-10-PCS; 2021-06-19)
PROC: 0U7C7ZZ Dilation of Cervix, Via Natural or Artificial Opening (ICD-10-PCS; 2021-06-19)
PROC: 3E033VJ Introduction of Other Hormone into Peripheral Vein, Percutaneous Approach (ICD-10-PCS; 2021-06-19)
PROC: 0KQM0ZZ Repair Perineum Muscle, Open Approach (ICD-10-PCS; 2021-06-19)
PROC: 3E0S3BZ Introduction of Anesthetic Agent into Epidural Space, Percutaneous Approach (ICD-10-PCS; 2021-06-19)
DX: O41.03X0 Oligohydramnios, third trimester, not applicable or unspecified (principal); Z3A.38 38 weeks gestation of pregnancy; Z37.0 Single live birth; O41.1230 Chorioamnionitis, third trimester, not applicable or unspecified; O70.1 Second degree perineal laceration during delivery; O69.81X0 Labor and delivery complicated by cord around neck, without compression, not applicable or unspecified; O76 Abnormality in fetal heart rate and rhythm complicating labor and delivery; Z20.822 Contact with and (suspected) exposure to COVID-19
CPT/HCPCS: 36415; 51701; 51702; 59025; 59409; 76816; 76819; 76819-26; 80053; 81003; 85027; 86592; 86850; 86900; 86901; A9270-GY; C1726; J0290; J1580; J2210; J2590; J3010; J3490; J7120; U0002

== ENCOUNTER 2023-11-24 18:09 | Emergency (ER) | payer BC ==
[2023-11-24 18:39] LABS: BASOPHILS ABSOLUTE AUTO 0.1 K/mm3 (0.0-0.2); BASOPHILS PERCENT AUTO 0.4 % (0.0-1.0); EOSINOPHILS ABSOLUTE AUTO 0.2 K/mm3 (0.0-0.4); EOSINOPHILS PERCENT AUTO 1.7 % (0.0-6.0); HEMOGLOBIN 14.5 gm/dl (12.0-16.0); IMMATURE GRAN ABSOLUTE AUTO 0.02 K/mm3 (0.00-0.05); IMMATURE GRAN PERCENT AUTO 0.2 % (0.0-0.4); LYMPHOCYTES PERCENT AUTO 35.5 % (24.0-44.0); MEAN CORPUSCULAR HEMOGLOBIN 28.3 pg (28.0-32.0); MEAN CORPUSCULAR HGB CONC 34.5 g/dl (32.0-36.0); MEAN CORPUSCULAR VOLUME 81.9 fl (83.0-99.0); MEAN PLATELET VOLUME 8.9 fl (9.4-12.3); MONOCYTES ABSOLUTE AUTO 0.9 K/mm3 (0.0-0.8); MONOCYTES PERCENT AUTO 8.3 % (0.0-8.0); NEUTROPHILS PERCENT AUTO 53.9 % (41.0-71.0); PLATELET COUNT,PLT 368 K/mm3 (150-400); RED BLOOD CELL COUNT 5.13 M/mm3 (4.10-5.30); WHITE BLOOD CELL COUNT,WBC 11.14 K/mm3 (3.9-11.3)
[2023-11-24 19:22] LABS: A/G RATIO 1.1 (1-2); ALBUMIN 4.1 g/dl (3.4-5.0); BILIRUBIN TOTAL 0.3 mg/dL (0.2-1.0); BUN/CREATININE RATIO 7.8 (14-18); CALCIUM 9.3 mg/dL (8.5-10.1); CREATININE 0.9 mg/dL (0.55-1.02); EST CRCL DRUG DOSING (CG) 95.52 mL/min; PROTEIN TOTAL,TP 7.8 g/dl (6.4-8.2)
[2023-11-24 19:47] LABS: APPEARANCE,URINE CLEAR (Clear); BILIRUBIN,URINE NEGATIVE (Negative); COLOR,URINE YELLOW (Yellow); GLUCOSE,URINE NEGATIVE (Negative); KETONES,URINE NEGATIVE (Negative); LEUKOCYTE ESTERASE,URINE NEGATIVE (Negative); NITRITE,URINE NEGATIVE (Negative); OCCULT BLOOD,URINE 1+ (Negative); PH,URINE 6.5 (5.0-8.0); PROTEIN,URINE NEGATIVE (Negative); UROBILINOGEN,URINE 0.2 (0.2-1.0)
[2023-11-24] MEDS: Potassium Chloride 20 MEQ Tab.ER PO ONE (20:03)
[2023-11-24 20:34] LABS: BACTERIA,URINE RARE /hpf (FEW); EPITHELIAL CELLS,URINE 0-5 /hpf (0-5); MUCUS,URINE NOT SEEN /hpf (FEW); RBC,URINE NOT SEEN /hpf (0-5); WBC,URINE 0-5 /hpf (0-5)
== END 2023-11-24 20:00 | disposition home or self-care (01) ==
LOC: JD.ED 18:09
DX: O20.8 Other hemorrhage in early pregnancy (principal); Z79.899 Other long term (current) drug therapy; Z3A.01 Less than 8 weeks gestation of pregnancy
CPT/HCPCS: 36415; 76817; 80053; 81001; 84702; 85025; 86900; 86901; 99284; A9270

== ENCOUNTER 2024-06-28 02:13 | Inpatient (IN) | payer BC ==
[~2024-06-28 02:13] MED LIST: Sodium Chloride 0.9% 10 ML Syringe FLUSH PRN
[2024-06-28] MEDS ORDERED: ceFAZolin 2 GM in Sodium Chloride 0.9% 50 ML IV ONE ×2 (05:35→06:00)
[2024-06-28] MEDS ORDERED: Oxytocin/0.9 % Sodium Chloride 30 UNIT/500 ML BAG IV SCH ×2 (05:45→06:00)
[2024-06-28 05:54] LABS: BASOPHILS PERCENT AUTO 0.4 % (0.0-1.0); EOSINOPHILS ABSOLUTE AUTO 0.1 K/mm3 (0.0-0.4); EOSINOPHILS PERCENT AUTO 0.8 % (0.0-6.0); HEMATOCRIT 38.1 % (37.0-47.0); IMMATURE GRAN ABSOLUTE AUTO 0.03 K/mm3 (0.00-0.05); IMMATURE GRAN PERCENT AUTO 0.3 % (0.0-0.4); LYMPHOCYTES ABSOLUTE AUTO 2.8 K/mm3 (1.0-4.8); LYMPHOCYTES PERCENT AUTO 27.9 % (24.0-44.0); MEAN CORPUSCULAR HEMOGLOBIN 29.2 pg (28.0-32.0); MEAN CORPUSCULAR HGB CONC 34.1 g/dl (32.0-36.0); MEAN PLATELET VOLUME 10.1 fl (9.4-12.3); MONOCYTES ABSOLUTE AUTO 0.9 K/mm3 (0.0-0.8); MONOCYTES PERCENT AUTO 8.7 % (0.0-8.0); NEUTROPHILS ABSOLUTE AUTO 6.2 K/mm3 (1.8-7.7); NEUTROPHILS PERCENT AUTO 61.9 % (41.0-71.0); RED BLOOD CELL COUNT 4.45 M/mm3 (4.10-5.30); WHITE BLOOD CELL COUNT,WBC 10.08 K/mm3 (3.9-11.3)
[2024-06-28 05:56] LABS: MEAN CORPUSCULAR VOLUME 85.6 fl (83.0-99.0); PLATELET COUNT,PLT 247 K/mm3 (150-400)
[2024-06-28] MEDS ORDERED: Lactated Ringers 1,000 ML IV SCH (06:00)
[2024-06-28] MEDS: Lactated Ringers 1,000 ML IV SCH ×2 (06:05→06:26)
[2024-06-28] MEDS: Citric Acid/Sodium Citrate Solution 30 ML Cup PO ONE ×2 (06:08→06:25)
[2024-06-28] MEDS: Metoclopramide 10 MG/2 ML SDV IVPUSH ONE ×2 (06:08→06:25)
[2024-06-28] MEDS: ceFAZolin 2 GM Vial IVPUSH ONE ×2 (06:12→11:19)
[2024-06-28] MEDS ORDERED: Morphine PF 10 MG/10 ML SDV ONE (07:05)
[2024-06-28] MEDS ORDERED: ceFAZolin 2 GM Vial ONE (07:06)
[2024-06-28] MEDS ORDERED: Ketorolac 30 MG/ML SDV ONE (07:08)
[2024-06-28] MEDS ORDERED: ePHEDrine 50 MG/ML SDV ONE (07:09)
[2024-06-28] MEDS ORDERED: Misoprostol 200 MCG Tab ONE (07:54)
[2024-06-28] MEDS ORDERED: Carboprost Tromethamine 250 MCG/1 mL Vial ONE (07:55)
[2024-06-28] MEDS ORDERED: Methylergonovine 0.2 MG/1 ML Amp ONE (07:55)
[2024-06-28] MEDS ORDERED: Lactated Ringers 1,000 ML ONE (08:13)
[2024-06-28] MEDS ORDERED: fentaNYL 100 MCG/2 ML SDV IVPUSH PRN (08:41)
[2024-06-28] MEDS ORDERED: diphenhydrAMINE 50 MG/ML SDV IVPUSH PRN ×2 (08:41→10:00)
[2024-06-28] MEDS ORDERED: Ondansetron 4 MG/2 ML SDV IV PRN (10:00)
[2024-06-28] MEDS ORDERED: Acetaminophen/oxyCODONE 325-5 MG Tab PO PRN (10:00)
[2024-06-28] MEDS ORDERED: ePHEDrine 50 MG/ML SDV IVPUSH PRN (10:00)
[2024-06-28] MEDS ORDERED: Naloxone 0.4 MG/ML SDV IVPUSH PRN (10:00)
[2024-06-28] MEDS: Ondansetron 4 MG/2 ML SDV IVPUSH PRN (10:01)
[2024-06-28 10:48] LABS: HEMATOCRIT 38.5 % (37.0-47.0); MEAN CORPUSCULAR HEMOGLOBIN 29.2 pg (28.0-32.0); MEAN CORPUSCULAR HGB CONC 33.8 g/dl (32.0-36.0); MEAN CORPUSCULAR VOLUME 86.5 fl (83.0-99.0); MEAN PLATELET VOLUME 10.4 fl (9.4-12.3); PLATELET COUNT,PLT 224 K/mm3 (150-400); RED BLOOD CELL COUNT 4.45 M/mm3 (4.10-5.30); WHITE BLOOD CELL COUNT,WBC 13.76 K/mm3 (3.9-11.3)
[2024-06-28] MEDS: Dextrose 5%-Lactated Ringers 1,000 ML IV SCH (11:12)
[2024-06-28] MEDS: Sodium Chloride 0.9% 10 ML Syringe FLUSH SCH (11:18)
[2024-06-28] MEDS: Lactated Ringers 500 ML IV ONE ×2 (11:43→12:15)
[2024-06-28] MEDS: Carboprost Tromethamine 250 MCG/1 mL Vial IM ONE (11:46)
[2024-06-28 12:32] LABS: INR 0.98; PROTHROMBIN TIME 10.4 SECONDS (9.7-12.0)
[2024-06-28] MEDS: Methylergonovine 0.2 MG/1 ML Amp IM ONE (12:55)
[2024-06-28] MEDS: Atropine/Diphenoxylate 0.025-2.5 MG Tab PO PRN (13:00)
[2024-06-28] MEDS: Ketorolac 30 MG/ML SDV IVPUSH SCH (15:22)
[2024-06-29] MEDS: Acetaminophen/oxyCODONE 325-5 MG Tab PO PRN (01:16)
[2024-06-29 04:37] LABS: BASOPHILS PERCENT AUTO 0.4 % (0.0-1.0); EOSINOPHILS PERCENT AUTO 0.3 % (0.0-6.0); HEMATOCRIT 31.9 % (37.0-47.0); HEMOGLOBIN 10.8 gm/dl (12.0-16.0); IMMATURE GRAN ABSOLUTE AUTO 0.04 K/mm3 (0.00-0.05); IMMATURE GRAN PERCENT AUTO 0.4 % (0.0-0.4); LYMPHOCYTES ABSOLUTE AUTO 2.2 K/mm3 (1.0-4.8); LYMPHOCYTES PERCENT AUTO 20.9 % (24.0-44.0); MEAN CORPUSCULAR HEMOGLOBIN 29.3 pg (28.0-32.0); MEAN CORPUSCULAR HGB CONC 33.9 g/dl (32.0-36.0); MEAN CORPUSCULAR VOLUME 86.4 fl (83.0-99.0); MEAN PLATELET VOLUME 10.1 fl (9.4-12.3); MONOCYTES PERCENT AUTO 9.1 % (0.0-8.0); NEUTROPHILS ABSOLUTE AUTO 7.4 K/mm3 (1.8-7.7); NEUTROPHILS PERCENT AUTO 68.9 % (41.0-71.0); PLATELET COUNT,PLT 194 K/mm3 (150-400); RED BLOOD CELL COUNT 3.69 M/mm3 (4.10-5.30)
[2024-06-29] MEDS: Ibuprofen 600 MG Tab PO SCH ×2 (09:48→23:06)
[2024-06-29] MEDS: Docusate Sodium 100 MG Cap PO PRN (23:06)
== END 2024-06-30 10:30 | disposition home or self-care (01) | DRG 540 ==
LOC: JD.OB 02:13
PROVIDERS: ADMIT Obstetrics & Gynecology; ATTEND Obstetrics & Gynecology
PROC: 10D00Z1 Extraction of Products of Conception, Low, Open Approach (ICD-10-PCS; principal; 2024-06-28 07:30)
DX: O32.1XX1 Maternal care for breech presentation, fetus 1 (principal); Z37.2 Twins, both liveborn; O30.043 Twin pregnancy, dichorionic/diamniotic, third trimester; Z3A.38 38 weeks gestation of pregnancy
CPT/HCPCS: 36415; 59025; 85025; 85027; 85384; 85610; 86592; 86850; 86900; 86901; A9270-GY; J0690; J1885; J2210; J2274; J2405; J2765; J3490; J7120; J7121